=== PATIENT | female | born 1990 | race Caucasian/White ===

== ENCOUNTER 2021-02-23 15:50 | Inpatient (IN) | payer OTHER ==
[~2021-02-23] VITALS: Ht 160 cm; Wt 108.0 kg
[2021-02-23 16:47] LABS: HEMOGLOBIN 11.1 gm/dl (12.3-15.3); RED BLOOD COUNT 4.34 M/UL (4.00-5.10); WHITE BLOOD COUNT 9.1 K/UL (4.5-11.0)
[2021-02-23] MEDS ORDERED: PRENATAL VITAM1 EAC6 PO (17:14)
[2021-02-23] MEDS ORDERED: GLUCOPHAGE 500500 MG PO (17:14)
[2021-02-23] MEDS ORDERED: COLACE 100MG C100 MG PO (17:15)
[2021-02-23 17:29] LABS: BUN/CREATININE RATIO 13 (0-10)
[2021-02-25] MEDS ORDERED: HYDROCODONE-AC1 EACH PO (07:06)
[2021-02-25] MEDS ORDERED: DOCUSATE SODIU250 MG PO (07:06)
[2021-02-25] MEDS ORDERED: IBUPROFEN600 MG PO (07:06)
[2021-02-25] MEDS ORDERED: FEROSUL325 MG PO (07:06)
[2021-02-26 06:58] LABS: HEMOGLOBIN 8.8 gm/dl (12.3-15.3)
== END 2021-02-27 15:30 | disposition home or self-care (01) | DRG 788 ==
LOC: GENOP 15:50 → OB 16:10
PROVIDERS: Obstetrics & Gynecology; ADMIT Obstetrics & Gynecology
PROC: 10907ZC Drainage of Amniotic Fluid, Therapeutic from Products of Conception, Via Natural or Artificial Opening (ICD-10-PCS; 2021-02-25)
PROC: 3E033VJ Introduction of Other Hormone into Peripheral Vein, Percutaneous Approach (ICD-10-PCS; 2021-02-25)
PROC: 10D00Z1 Extraction of Products of Conception, Low, Open Approach (ICD-10-PCS; principal; 2021-02-25 06:20)
DX: O62.1 Secondary uterine inertia (principal); O24.424 Gestational diabetes mellitus in childbirth, insulin controlled; O99.824 Streptococcus B carrier state complicating childbirth; O99.214 Obesity complicating childbirth; O99.344 Other mental disorders complicating childbirth; Z3A.39 39 weeks gestation of pregnancy; Z37.0 Single live birth; E66.9 Obesity, unspecified
CPT/HCPCS: 36415; 80048; 81001; 82800; 82962; 85014; 85018; 85025; 90707; 90715; J0595; J0690; J1200; J1885; J2274; J2405; J2590; J2795; J3010; J7030; J7121; U0003

== ENCOUNTER 2022-02-26 12:03 | Emergency (ER) | payer OTHER ==
[~2022-02-26 12:03] MED LIST: COLACE 100MG C100 MG PO; DOCUSATE SODIU250 MG PO; FEROSUL325 MG PO; GLUCOPHAGE 500500 MG PO; HYDROCODONE-AC1 EACH PO; IBUPROFEN600 MG PO; PRENATAL VITAM1 EAC6 PO
== END 2022-02-26 13:54 | disposition home or self-care (01) ==
LOC: ER1 12:03
DX: S93.402A Sprain of unspecified ligament of left ankle, initial encounter (principal); S93.602A Unspecified sprain of left foot, initial encounter; E11.9 Type 2 diabetes mellitus without complications; I10 Essential (primary) hypertension; F17.200 Nicotine dependence, unspecified, uncomplicated; W19.XXXA Unspecified fall, initial encounter; Y92.009 Unspecified place in unspecified non-institutional (private) residence as the place of occurrence of the external cause
CPT/HCPCS: 73610; 73630; 99283